=== PATIENT | female | born 1990 | race Caucasian/White ===

== ENCOUNTER 2018-07-16 21:34 | Emergency (ER) | payer BC ==
[2018-07-16] MEDS ORDERED: NS 1,000 ML IV ONE ×2 (22:17)
--- NOTE | 2018-07-16 22:18 | EDPHY ---
H & P Stated Complaint: eating disorder-syncope,migraines, anxiety,abd pain, racing HR Source: Patient Exam Limitations: No limitations - Personal History LMP (Females 10-55): IUD In Place Current Tetanus/Diphtheria Vaccine: Yes Current Tetanus Diphtheria and Acellular Pertussis (TDAP): Yes - Medical/Surgical History Hx Asthma: No Hx Chronic Respiratory Disease: No Hx Diabetes: No Hx Cardiac Disease: No Hx Renal Disease: No Hx Cirrhosis: No Hx Alcoholism: No Hx HIV/AIDS: No Hx Splenectomy or Spleen Trauma: No Other PMH: eating disorder, anxiety, depression - Social History Smoking Status: Former smoker Time Seen by Provider: 07/16/18 22:17 HPI/ROS: HPI: This is a 27-year-old female who presents with Chief Complaint: eating disorder-syncope,migraines, anxiety,abd pain, racing HR Location: Lower abdomen Quality: Pain Duration: 1 hr prior to arrival Signs and Symptoms: no fever, + nausea, + vomiting, no hematemesis, no blood in stool, no abdominal bloating, no diarrhea, no back pain, no urinary symptoms, no vaginal bleeding/discharge, no indigestion, no chest pain, no shortness of breath Timing: Acute, slowly resolving Severity: Moderate Context: Patient reports that she was walking outside approximately 1.5 miles when she started to feel nauseous and vomited x1 she also experience some lower abdominal pain that is described as cramping in nature. Last menstrual period was a week and half ago. IUD in place. Denies any vaginal bleeding, vaginal discharge. Patient does have a eating disorder and reports that she ate for the 1st time today but vomited up early this morning. She reports that when she started to experience the nausea, she started to feel dizzy and her heart was racing. She felt like she was going to faint but did not lose consciousness. Modifying Factors: None Comment: ROS: A comprehensive 10 system review of systems is otherwise negative aside from elements mentioned in the history of present illness. MEDICAL/SURGICAL/SOCIAL HISTORY: Medical history: eating disorder, anxiety, depression, migraines Surgical history: Denies Social history: Former smoker. Currently in a relationship. Family history noncontributory. CONSTITUTIONAL: Well-developed, well-nourished, slightly anxious adult white female, boyfriend at bedside, awake and alert, no obvious distress HEENT: Atraumatic and normocephalic, PERRL, EOMI. Nares patent; no rhinorrhea; no nasal mucosal edema. Tympanic membranes clear. Oropharynx clear, no exudate and moist pink mucosa. Airway patent. No lymphadenopathy. No meningismus. Cardiovascular: Normal S1/S2, regular rate, regular rhythm, without murmur rub or gallop. PULMONARY/CHEST: Symmetrical and nontender. Clear to auscultation bilaterally. Good air movement. No accessory muscle usage. ABDOMEN: Soft, nondistended, nontender, no rebound, no guarding, no peritoneal signs, no masses or organomegaly. No CVAT. EXTREMITIES: 2/2 pulses, strength 5/5, no deformities, no clubbing, no cyanosis or edema. NEUROLOGICAL: no focal neuro deficits. GCS 15. SKIN: Warm and dry, no erythema. no rash. Good capillary refill. (Vale Waddell) Constitutional: Initial Vital Signs Temperature (C) 36.6 C 07/16/18 21:37 Heart Rate 87 07/16/18 21:37 Respiratory Rate 16 07/16/18 21:37 Blood Pressure 151/102 H 07/16/18 21:37 O2 Sat (%) 96 07/16/18 21:37 O2 Delivery Mode Room Air Allergies/Adverse Reactions: clindamycin Allergy (Verified 07/16/18 21:42) Home Medications: Medication Instructions Recorded Iud 07/16/18 Medical Decision Making - Diagnostics Imaging Results: Imaging Impressions Pelvic/Renal Ultrasound 07/16/18 22:23 Impression: Normal ultrasound pelvis. IUD in good position within the endometrial canal. Findings discussed with Vale Waddell PAC at 23:08 hour, 07/16/2018. ED Course/Re-evaluation: Vital signs reviewed and show elevated blood pressure upon arrival. Placed on hospital monitor. IV access, laboratory studies, EKG, urinalysis, pelvic ultrasound ordered Patient given 2 L normal saline, IV promethazine 12.5 mg 2226: EKG my read with attending shows normal sinus rhythm, no acute ischemic changes, no arrhythmias, no heart block. 2254: Labs reviewed. No signs of leukocytosis/anemia/platelet dysfunction/ALICIA/ elevated LFTs/electrolyte imbalance/pancreatitis/. Urinalysis unremarkable. Pelvic ultrasound shows IUD in place and unremarkable. Reassessed patient who has no primary care provider. Referral given to the [facility] at [place]. Advised If symptoms persist, referral to Cardiology for Holter monitor indicated. This patient was seen under the supervision of my secondary supervising physician. I evaluated care for this patient independently. Discussed this patient with Dr. Ward. (Vale Waddell) PHYSICIAN DOCUMENTATION: The patient was evaluated and managed by the Physician State Wildlife Officer. My co- signature indicates that I have reviewed this chart and I agree with the findings and plan of care as documented. I am the secondary supervising physician. (Ciara Ward) Differential Diagnosis: Abdominal pain in a female including but not limited to ovarian cyst, pelvic inflammatory disease, ovarian torsion, urinary tract infection, and appendicitis. (Vale Waddell) - Data Points Laboratory Results: Laboratory Results 07/16/18 22:25 07/16/18 22:25 07/16/18 07/16/18 07/16/18 22:45 22:25 22:25 WBC RBC Hgb Hct MCV MCH MCHC RDW Plt Count MPV Neut % (Auto) Lymph % (Auto) [place] % (Auto) Eos % (Auto) Baso % (Auto) Nucleat RBC Rel Count Absolute Neuts (auto) Absolute Lymphs (auto) Absolute Monos (auto) Absolute Eos (auto) Absolute Basos (auto) Absolute Nucleated RBC Immature Gran % Immature Gran # Sodium 140 mEq/L mEq/L (135-145) Potassium 3.7 mEq/L mEq/L (3.5-5.2) Chloride 107 mEq/L mEq/L (97-110) Carbon Dioxide 22 mEq/l mEq/l (22-31) Anion Gap 11 mEq/L mEq/L (6-14) BUN 7 mg/dL mg/dL (7-23) Creatinine 0.7 mg/dL mg/dL (0.6-1.0) Estimated GFR > 60 Glucose 103 mg/dL H mg/dL (70-100) Calcium 9.7 mg/dL mg/dL (8.5-10.4) Magnesium 1.8 mg/dL mg/dL (1.6-2.3) Total Bilirubin 0.4 mg/dL mg/dL (0.1-1.4) Conjugated Bilirubin 0.3 mg/dL mg/dL (0.0-0.5) Unconjugated Bilirubin 0.1 mg/dL mg/dL (0.0-1.1) AST 19 IU/L IU/L (14-46) ALT 29 IU/L IU/L (9-52) Alkaline Phosphatase 59 IU/L IU/L (38-126) Total Protein 7.0 g/dL g/dL (6.3-8.2) Albumin 4.5 g/dL g/dL (3.5-5.0) Lipase 198 IU/L IU/L (23-300) Beta HCG, Qual NEGATIVE Urine Color PALE YELLOW Urine Appearance CLEAR Urine pH 8.0 H (5.0-7.5) Ur Specific [place] 1.005 (1.002-1.030) Urine Protein NEGATIVE (NEGATIVE) Urine Ketones NEGATIVE (NEGATIVE) Urine Blood NEGATIVE (NEGATIVE) Urine Nitrate NEGATIVE (NEGATIVE) Urine Bilirubin NEGATIVE (NEGATIVE) Urine Urobilinogen NEGATIVE EU EU (0.2-1.0) Ur Leukocyte Esterase NEGATIVE (NEGATIVE) Urine Glucose NEGATIVE (NEGATIVE) 07/16/18 22:25 WBC 8.33 10^3/uL 10^3/uL (3.80-9.50) RBC 4.55 10^6/uL 10^6/uL (4.18-5.33) Hgb 14.1 g/dL g/dL (12.6-16.3) Hct 38.8 % % (38.0-47.0) MCV 85.3 fL fL (81.5-99.8) MCH 31.0 pg pg (27.9-34.1) MCHC 36.3 g/dL g/dL (32.4-36.7) RDW 12.3 % % (11.5-15.2) Plt Count 238 10^3/uL 10^3/uL (150-400) MPV 10.5 fL fL (8.7-11.7) Neut % (Auto) 69.4 % % (39.3-74.2) Lymph % (Auto) 24.8 % % (15.0-45.0) [place] % (Auto) 5.2 % % (4.5-13.0) Eos % (Auto) 0.2 % L % (0.6-7.6) Baso % (Auto) 0.2 % L % (0.3-1.7) Nucleat RBC Rel Count 0.0 % % (0.0-0.2) Absolute Neuts (auto) 5.77 10^3/uL 10^3/uL (1.70-6.50) Absolute Lymphs (auto) 2.07 10^3/uL 10^3/uL (1.00-3.00) Absolute Monos (auto) 0.43 10^3/uL 10^3/uL (0.30-0.80) Absolute Eos (auto) 0.02 10^3/uL L 10^3/uL (0.03-0.40) Absolute Basos (auto) 0.02 10^3/uL 10^3/uL (0.02-0.10) Absolute Nucleated RBC 0.00 10^3/uL 10^3/uL (0-0.01) Immature Gran % 0.2 % % (0.0-1.1) Immature Gran # 0.02 10^3/uL 10^3/uL (0.00-0.10) Sodium Potassium Chloride Carbon Dioxide Anion Gap BUN Creatinine Estimated GFR Glucose Calcium Magnesium Total Bilirubin Conjugated Bilirubin Unconjugated Bilirubin AST ALT Alkaline Phosphatase Total Protein Albumin Lipase Beta HCG, Qual Urine Color Urine Appearance Urine pH Ur Specific [place] Urine Protein Urine Ketones Urine Blood Urine Nitrate Urine Bilirubin Urine Urobilinogen Ur Leukocyte Esterase Urine Glucose Medications Given: Discontinued Medications Sodium Chloride (Ns) 1,000 mls @ 0 mls/hr IV EDNOW ONE; Wide Open PRN Reason: Protocol Stop: 07/16/18 22:18 Last Admin: 07/16/18 22:44 Dose: 1,000 mls Sodium Chloride (Ns) 1,000 mls @ 0 mls/hr IV EDNOW ONE; Wide Open PRN Reason: Protocol Stop: 07/16/18 22:18 Last Admin: 07/16/18 22:45 Dose: 1,000 mls Promethazine HCl (Phenergan) 12.5 mg IVP ONCE ONE Stop: 07/16/18 22:24 Last Admin: 07/16/18 22:46 Dose: 12.5 mg Departure - Departure Disposition: Home, Routine, Self-Care Clinical Impression: Near syncope, Heart palpitations Condition: Good Instructions: Heart Palpitations (ED), Near Syncope (ED) Additional Instructions: Consume a minimum of 8-10 glasses of water or electrolyte fluid replacement drinks that include Gatorade, Powerade, Pedialyte. Eat a bland diet for the next 48 hours and then slowly advance as tolerated. Establish care with primary care provider. If palpitations and chest discomfort continue to occur, follow-up with Cardiology to discuss candidacy for Holter monitor. Referrals: [facility],. [Clinic] - As per Instructions Johnathan Luis DO [Doctor of Osteopathy] - As per Instructions
[2018-07-16] MEDS ORDERED: PROMETHAZINE HCL 25 MG/ML INJ IVP ONE (22:23)
[2018-07-16 22:41] LABS: PLATELET COUNT 238 10^3/uL (150-400)
--- NOTE | 2018-07-16 22:59 | CPEKG ---
Test Reason : OPEN Blood Pressure : / mmHG Vent. Rate : 073 BPM Atrial Rate : 081 BPM P-R Int : 188 ms QRS Dur : 086 ms QT Int : 373 ms P-R-T Axes : 068 045 059 degrees QTc Int : 411 ms Sinus rhythm Low voltage, precordial leads Confirmed by Nuno Mckeon ([id number]) on 07/16/2018 10:58:27 PM Referred By: PHYSICIAN ED Confirmed By:Nuno Mckeon
[2018-07-16 23:42] VITALS: BP 128/84
== END 2018-07-16 23:42 | disposition home or self-care (01) ==
DX: R55 Syncope and collapse (principal); R11.2 Nausea with vomiting, unspecified; E86.9 Volume depletion, unspecified; F41.9 Anxiety disorder, unspecified
CPT/HCPCS: 96374; J2550

== ENCOUNTER → 2018-09-26 | Outpatient (CLI) | payer BC | LOC: BMCIMAGING 14:00 | PROVIDERS: ATTEND Orthopaedic Surgery Hand Surgery | DX: S62.624A Displaced fracture of middle phalanx of right ring finger, initial encounter for closed fracture (principal) ==